=== PATIENT | male | born 1970 | race Caucasian/White ===

== ENCOUNTER 2020-08-19 12:24 | Emergency (ER) | payer BC, OTHER ==
[~2020-08-19] VITALS: Ht 182.9 cm; Wt 128.8 kg
[~2020-08-19 12:24] MED LIST: ASPIR 8181 MG PO
[2020-08-19 12:41] LABS: BASOPHILS # (AUTO) 0.1 (0.0-0.1); BASOPHILS % 0.7 % (0.0-1.0); EOSINOPHILS # (AUTO) 0.2 (0.0-0.4); EOSINOPHILS % 2.4 % (0.0-6.0); HEMATOCRIT 48.2 % (38.2-49.6); HEMOGLOBIN 15.8 g/dL (14.0-18.0); LYMPHOCYTES # (AUTO) 2.2 (1.0-3.2); MEAN CORPUSCULAR HEMOGLOBIN 29.1 pg (28-32); MEAN CORPUSCULAR HGB CONC 32.8 g/dL (31-35); MEAN CORPUSCULAR VOLUME 88.8 fL (81-99); MONOCYTES # (AUTO) 0.6 (0.2-0.8); MONOCYTES % 7.9 % (4.4-11.3); NEUTROPHILS # (AUTO) 4.5 (2.1-6.9); NEUTROPHILS % 59.7 % (38.7-80.0); PLATELET COUNT 215 x10e3/uL (140-360); RED BLOOD COUNT 5.43 x10e6/uL (4.3-5.7); RED CELL DISTRIBUTION WIDTH 12.6 % (11.7-14.4)
[2020-08-19 13:00] LABS: ALANINE AMINOTRANSFERASE 28 IU/L (0-55); ALBUMIN 4.3 g/dL (3.5-5.0); ALBUMIN/GLOBULIN RATIO 1.3 (0.8-2.0); ALKALINE PHOSPHATASE 75 IU/L (40-150); ANION GAP 13.2 mmol/L (8-16); BLOOD UREA NITROGEN 12 mg/dL (7-26); BUN/CREATININE RATIO 14 (6-25); CALCIUM 8.9 mg/dL (8.4-10.2); CARBON DIOXIDE 28 mmol/L (22-29); CHLORIDE 103 mmol/L (98-107); CREATINE KINASE 160 IU/L (30-200); CREATININE, SERUM 0.88 mg/dL (0.72-1.25); EST GLOMERULAR FILTRATION RATE > 60 ML/MIN (60-); GLUCOSE 118 mg/dL (74-118); POTASSIUM 4.2 mmol/L (3.5-5.1); SODIUM 140 mmol/L (136-145)
[2020-08-19 13:41] LABS: FREE THYROXINE INDEX 2.1568 (1.4-3.8); THYROID STIMULATING HORMONE 1.725 uIU/mL (0.350-4.940)
== END 2020-08-19 14:14 | disposition home or self-care (01) ==
LOC: ER 13:10
DX: R00.2 Palpitations (principal); R50.9 Fever, unspecified; E29.1 Testicular hypofunction; F17.210 Nicotine dependence, cigarettes, uncomplicated
CPT/HCPCS: 36415; 71045; 80053; 82550; 82553; 84436; 84443; 84479; 84484; 85025; 99283

== ENCOUNTER 2020-09-09 11:19 | Inpatient (IN) | payer BC ==
[~2020-09-09] VITALS: Ht 182.9 cm; Wt 117.9 kg
[2020-09-09] MEDS ORDERED: SODIUM CHLORIDE 0.9% 1000ML 1,000 ML IV STA (11:29)
[2020-09-09] MEDS ORDERED: METOPROLOL TARTRATE INJ 1 MG/ML VIAL IV NR (11:30)
[2020-09-09] MEDS ORDERED: ASPIRIN 81 MG CHEW TAB PO ONE (11:45)
[2020-09-09 11:51] LABS: BASOPHILS # (AUTO) 0.1 (0.0-0.1); BASOPHILS % 0.9 % (0.0-1.0); EOSINOPHILS # (AUTO) 0.2 (0.0-0.4); EOSINOPHILS % 3.2 % (0.0-6.0); HEMATOCRIT 46.9 % (38.2-49.6); HEMOGLOBIN 15.7 g/dL (14.0-18.0); LYMPHOCYTES # (AUTO) 2.3 (1.0-3.2); LYMPHOCYTES % 34.2 % (18.0-39.1); MEAN CORPUSCULAR HEMOGLOBIN 29.7 pg (28-32); MEAN CORPUSCULAR HGB CONC 33.5 g/dL (31-35); MEAN CORPUSCULAR VOLUME 88.7 fL (81-99); MONOCYTES # (AUTO) 0.7 (0.2-0.8); MONOCYTES % 9.7 % (4.4-11.3); NEUTROPHILS # (AUTO) 3.5 (2.1-6.9); NEUTROPHILS % 51.9 % (38.7-80.0); PLATELET COUNT 211 x10e3/uL (140-360); RED BLOOD COUNT 5.29 x10e6/uL (4.3-5.7); RED CELL DISTRIBUTION WIDTH 12.3 % (11.7-14.4)
[2020-09-09 12:09] LABS: ALANINE AMINOTRANSFERASE 26 IU/L (0-55); ALBUMIN 4.2 g/dL (3.5-5.0); ALBUMIN/GLOBULIN RATIO 1.1 (0.8-2.0); ALKALINE PHOSPHATASE 76 IU/L (40-150); ANION GAP 11.9 mmol/L (8-16); BLOOD UREA NITROGEN 20 mg/dL (7-26); BUN/CREATININE RATIO 21 (6-25); CALCIUM 9.1 mg/dL (8.4-10.2); CARBON DIOXIDE 27 mmol/L (22-29); CHLORIDE 104 mmol/L (98-107); CREATINE KINASE 281 IU/L (30-200); CREATININE, SERUM 0.94 mg/dL (0.72-1.25); EST GLOMERULAR FILTRATION RATE > 60 ML/MIN (60-); GLUCOSE 99 mg/dL (74-118); POTASSIUM 3.9 mmol/L (3.5-5.1); SODIUM 139 mmol/L (136-145)
[2020-09-09 12:15] LABS: INR 0.89; PROTHROMBIN TIME 12.6 seconds (11.9-14.5)
[2020-09-09 12:16] LABS: PARTIAL THROMBOPLASTIN TIME 31.5 seconds (23.8-35.5)
[2020-09-09 12:28] LABS: THYROID STIMULATING HORMONE 1.619 uIU/mL (0.350-4.940)
[2020-09-09] MEDS ORDERED: AMIODARONE HCL 150 MG/100 ML BAG IV NR (12:45)
[2020-09-09] MEDS ORDERED: DIGOXIN INJ 0.25 MG/ML 2 ML AMP IV NR (12:45)
[2020-09-09] MEDS ORDERED: AMIODARONE HCL 150 MG/100 ML BAG IV ONE (12:45)
[2020-09-09] MEDS ORDERED: FAMOTIDINE 20 MG/2 ML VIAL IV SCH (13:00)
[2020-09-09] MEDS ORDERED: ONDANSETRON HCL INJ 2MG/ML 2ML 2 MG/ML VIAL IV PRN (13:00)
[2020-09-09] MEDS ORDERED: LIDOCAINE VISC 2% SOLN 15 ML UDC PO ONE (13:00)
[2020-09-09] MEDS ORDERED: MAGNESIUM/ALUMINUM/SIMETHICONE 30 ML UDC PO ONE (13:00)
[2020-09-09] MEDS ORDERED: BELLADONNA ALK/PHENOBARBITAL 5 ML UDC PO ONE (13:00)
[2020-09-09] MEDS ORDERED: AMIODARONE HCL 900 MG in DEXTROSE 5% 500ML 500 ML IV ONE (13:00)
[2020-09-09 19:03] LABS: CREATINE KINASE MB 2.4 ng/mL (0-5.0)
[2020-09-09] MEDS ORDERED: RIVAROXABAN 20 MG TABLET PO SCH (19:30)
[2020-09-09] MEDS ORDERED: METOPROLOL SUCCINATE 25 MG TAB XL PO ONE (19:30)
[2020-09-10 02:34] LABS: CREATINE KINASE 142 IU/L (30-200)
[2020-09-10 05:40] LABS: BASOPHILS % 0.5 % (0.0-1.0); EOSINOPHILS # (AUTO) 0.3 (0.0-0.4); EOSINOPHILS % 3.4 % (0.0-6.0); HEMATOCRIT 44.7 % (38.2-49.6); HEMOGLOBIN 14.7 g/dL (14.0-18.0); LYMPHOCYTES # (AUTO) 2.8 (1.0-3.2); LYMPHOCYTES % 38.5 % (18.0-39.1); MEAN CORPUSCULAR HEMOGLOBIN 30.2 pg (28-32); MEAN CORPUSCULAR HGB CONC 32.9 g/dL (31-35); MEAN CORPUSCULAR VOLUME 91.8 fL (81-99); MONOCYTES # (AUTO) 0.6 (0.2-0.8); MONOCYTES % 8.7 % (4.4-11.3); NEUTROPHILS # (AUTO) 3.6 (2.1-6.9); NEUTROPHILS % 48.6 % (38.7-80.0); PLATELET COUNT 193 x10e3/uL (140-360); RED BLOOD COUNT 4.87 x10e6/uL (4.3-5.7); RED CELL DISTRIBUTION WIDTH 12.6 % (11.7-14.4)
[2020-09-10 06:17] LABS: ALANINE AMINOTRANSFERASE 23 IU/L (0-55); ALBUMIN 3.7 g/dL (3.5-5.0); ALKALINE PHOSPHATASE 66 IU/L (40-150); ANION GAP 11.1 mmol/L (8-16); BLOOD UREA NITROGEN 12 mg/dL (7-26); BUN/CREATININE RATIO 14 (6-25); CALCIUM 8.6 mg/dL (8.4-10.2); CARBON DIOXIDE 26 mmol/L (22-29); CHLORIDE 107 mmol/L (98-107); CHOL/HDL RATIO 3.8 (3.9-4.7); CHOLESTEROL 160 MD/DL (0-199); CREATININE, SERUM 0.86 mg/dL (0.72-1.25); EST GLOMERULAR FILTRATION RATE > 60 ML/MIN (60-); GLUCOSE 111 mg/dL (74-118); HDL CHOLESTEROL 42 MG/DL (40-60); LDL CHOLESTEROL 103 MG/DL (60-130); POTASSIUM 4.1 mmol/L (3.5-5.1); SODIUM 140 mmol/L (136-145); TRIGLYCERIDES 77 MG/DL (0-149)
[2020-09-10 06:43] LABS: CREATINE KINASE MB 1.6 ng/mL (0-5.0)
[2020-09-10 07:33] VITALS: BP 118/76
[2020-09-10 08:45] VITALS: BP 125/77
[2020-09-10 08:51] VITALS: BP 127/66
[2020-09-10 08:58] VITALS: BP 118/57
[2020-09-10] MEDS ORDERED: FAMOTIDINE 20 MG/2 ML VIAL IV SCH (09:00)
[2020-09-10] MEDS ORDERED: METOPROLOL SUCCINATE 25 MG TAB XL PO SCH (09:00)
[2020-09-10 10:34] VITALS: BP_SYST 114; BP_SYST 125; BP_DIAS 60; BP_DIAS 77
[2020-09-10 13:00] VITALS: BP 125/77
[2020-09-10] MEDS ORDERED: TOPROL XL25 MG PO (13:10)
[2020-09-10] MEDS ORDERED: XARELTO10 MG PO (13:10)
[2020-09-10] MEDS ORDERED: RIVAROXABAN 20 MG TABLET PO SCH (17:00)
== END 2020-09-10 14:30 | disposition home or self-care (01) | DRG 310 ==
LOC: ER 11:30 → ERHOLD 12:55 → ICU 09-10 07:16
PROVIDERS: ADMIT Internal Medicine; ATTEND Internal Medicine
DX: I48.0 Paroxysmal atrial fibrillation (principal); Z88.1 Allergy status to other antibiotic agents; Z88.5 Allergy status to narcotic agent; Z88.8 Allergy status to other drugs, medicaments and biological substances; Z86.16 Personal history of COVID-19; Z20.822 Contact with and (suspected) exposure to COVID-19
CPT/HCPCS: 36415; 71045; 80053; 80061; 82550; 82553; 83735; 83880; 84443; 84484; 85025; 85379; 85610; 85730; 93005; 93306; 99284; J1160; J7030; J7060; U0002

== ENCOUNTER 2020-09-22 07:23 | Emergency (ER) | payer BC ==
[~2020-09-22] VITALS: Ht 177.8 cm; Wt 113.4 kg
[~2020-09-22 07:23] MED LIST changes: +TOPROL XL25 MG PO; +XARELTO10 MG PO
[2020-09-22] MEDS ORDERED: SODIUM CHLORIDE 0.9% 1000ML 1,000 ML IV STA (07:26)
[2020-09-22 07:54] LABS: BASOPHILS # (AUTO) 0.1 (0.0-0.1); BASOPHILS % 0.7 % (0.0-1.0); EOSINOPHILS # (AUTO) 0.2 (0.0-0.4); HEMATOCRIT 44.6 % (38.2-49.6); HEMOGLOBIN 14.9 g/dL (14.0-18.0); LYMPHOCYTES # (AUTO) 2.2 (1.0-3.2); LYMPHOCYTES % 29.8 % (18.0-39.1); MEAN CORPUSCULAR HEMOGLOBIN 29.6 pg (28-32); MEAN CORPUSCULAR HGB CONC 33.4 g/dL (31-35); MEAN CORPUSCULAR VOLUME 88.5 fL (81-99); MONOCYTES # (AUTO) 0.8 (0.2-0.8); MONOCYTES % 10.6 % (4.4-11.3); NEUTROPHILS # (AUTO) 4.2 (2.1-6.9); NEUTROPHILS % 55.8 % (38.7-80.0); PLATELET COUNT 194 x10e3/uL (140-360); RED BLOOD COUNT 5.04 x10e6/uL (4.3-5.7); RED CELL DISTRIBUTION WIDTH 12.5 % (11.7-14.4)
[2020-09-22 08:03] LABS: INR 1.09; PROTHROMBIN TIME 14.8 seconds (11.9-14.5)
[2020-09-22 08:04] LABS: PARTIAL THROMBOPLASTIN TIME 40.9 seconds (23.8-35.5)
[2020-09-22 08:13] LABS: ALANINE AMINOTRANSFERASE 21 IU/L (0-55); ALBUMIN 4.1 g/dL (3.5-5.0); ALBUMIN/GLOBULIN RATIO 1.2 (0.8-2.0); ALKALINE PHOSPHATASE 81 IU/L (40-150); BLOOD UREA NITROGEN 20 mg/dL (7-26); BUN/CREATININE RATIO 21 (6-25); CALCIUM 8.7 mg/dL (8.4-10.2); CARBON DIOXIDE 27 mmol/L (22-29); CHLORIDE 105 mmol/L (98-107); CREATINE KINASE 389 IU/L (30-200); CREATININE, SERUM 0.97 mg/dL (0.72-1.25); EST GLOMERULAR FILTRATION RATE > 60 ML/MIN (60-); GLUCOSE 98 mg/dL (74-118); MAGNESIUM 2.1 MG/DL (1.3-2.1); SODIUM 140 mmol/L (136-145)
[2020-09-22 08:33] LABS: THYROID STIMULATING HORMONE 4.822 uIU/mL (0.350-4.940)
[2020-09-22] MEDS ORDERED: ASPIRIN 81 MG CHEW TAB PO ONE (09:45)
[2020-09-22] MEDS ORDERED: LIDOCAINE VISC 2% SOLN 15 ML UDC PO ONE (09:45)
[2020-09-22] MEDS ORDERED: BELLADONNA ALK/PHENOBARBITAL 5 ML UDC PO ONE (09:45)
[2020-09-22] MEDS ORDERED: MAGNESIUM/ALUMINUM/SIMETHICONE 30 ML UDC PO ONE (09:45)
[2020-09-22 10:20] LABS: CREATINE KINASE MB 3.8 ng/mL (0-5.0)
== END 2020-09-22 11:50 | disposition home or self-care (01) ==
LOC: ER 07:36
DX: I48.91 Unspecified atrial fibrillation (principal)
CPT/HCPCS: 36415; 71045; 80053; 82550; 82553; 83735; 83880; 84443; 84484; 85025; 85610; 85730; 93005; 99284; J7030